=== PATIENT | female | born 1965 | race Hispanic/Latino ===

== ENCOUNTER → 2017-11-20 | Outpatient (CLI) | payer BC | END | disposition home or self-care (01) | LOC: RAH 07:56 | PROVIDERS: ATTEND Internal Medicine | DX: K21.0 Gastro-esophageal reflux disease with esophagitis (principal); R10.13 Epigastric pain | CPT/HCPCS: 74240; 76700 ==

== ENCOUNTER 2021-06-07 06:22 | Observation (INO) | payer BC, OTHER ==
[2021-06-05 12:25] LABS: BASOPHILS % (AUTO) 0.7 % (0.0-5.0); EOSINOPHILS % (AUTO) 0.9 % (0.0-8.0); HEMATOCRIT 38.3 % (36-48); LYMPHOCYTES % (AUTO) 44.1 % (21.0-51.0); MEAN CORPUSCULAR HEMOGLOBIN 32.9 pg (27.0-33.0); MEAN CORPUSCULAR HGB CONC 34.5 g/dL (32.0-36.0); MEAN CORPUSCULAR VOLUME 95.5 fL (79-99); MONOCYTES % (AUTO) 8.6 % (3.0-13.0); NEUTROPHILS % (AUTO) 45.2 % (40.0-77.0); PLATELET COUNT (AUTO) 184 K/uL (130-400); RED BLOOD CELL COUNT(AUTO) 4.01 MIL/uL (4.00-5.50); RED CELL DISTRIBUTION WIDTH 11.6 % (11.0-15.5); WHITE BLOOD COUNT (AUTO) 4.4 K/uL (4.8-10.8)
[2021-06-05 12:34] LABS: CREATININE 0.5 mg/dL (0.5-1.5); POTASSIUM 4.2 mmol/L (3.5-5.1)
[2021-06-05 12:36] LABS: INR 1.05 (0.85-1.15); PROTHROMBIN TIME 11.4 SEC (9.6-11.6)
[2021-06-05 12:37] LABS: PARTIAL THROMBOPLASTIN TIME 26.6 SEC (26.3-35.5)
[2021-06-05 15:36] VITALS: BP 113/71
[~2021-06-07] VITALS: Ht 160 cm; Wt 60.1 kg
[2021-06-07] VITALS (25 sets, daily range): BP systolic 95–134; BP diastolic 54–90
[2021-06-07] MEDS ORDERED: LIDOCAINE 1%-EPI 1:100,000 20 ML VIAL IJ ONE (06:52)
[2021-06-07] MEDS ORDERED: CEFAZOLIN SODIUM 1 GM VIAL ONE (06:53)
[2021-06-07] MEDS ORDERED: LACTATED RINGERS 1000ML 1,000 ML IV ONE (06:54)
[2021-06-07] MEDS ORDERED: FAMOTIDINE 20MG VIAL IV ONE (07:00)
[2021-06-07] MEDS ORDERED: SUCCINYLCHOLINE CHLORIDE 20 MG/ML 10 ML VIAL ONE (07:06)
[2021-06-07] MEDS ORDERED: LIDOCAINE PF 100MG/5ML (2%) SYRINGE 5ML ONE (07:06)
[2021-06-07] MEDS ORDERED: GLYCOPYRROLATE 1 MG/5 ML SYRINGE ONE (07:06)
[2021-06-07] MEDS ORDERED: MIDAZOLAM HCL 1 MG/ML 2ML VIAL ONE (07:06)
[2021-06-07] MEDS ORDERED: PROPOFOL 10 MG/ML 20ML VIAL IV ONE (07:07)
[2021-06-07] MEDS ORDERED: FENTANYL CITRATE PF 50 MCG/1 ML 5ML AMP IV ONE (07:07)
[2021-06-07] MEDS ORDERED: ONDANSETRON 4MG INJ ONE (07:11)
[2021-06-07] MEDS ORDERED: LIDOCAINE 1%-EPI 1:100,000 20 ML VIAL IJ PRN (08:00)
[2021-06-07] MEDS ORDERED: EPHEDRINE SULFATE 50 MG/ML AMPULE ONE (08:25)
[2021-06-07] MEDS ORDERED: MEPERIDINE-PF 25 MG/ML SYG ONE (11:02)
[2021-06-07] MEDS ORDERED: BACITRACIN 28.4 GM OINT TP ONE (11:06)
[2021-06-07] MEDS ORDERED: FENTANYL CITRATE PF 50 MCG/1 ML 2ML VIAL ONE (11:42)
[2021-06-07] MEDS ORDERED: OMEG-148 PO (13:45)
[2021-06-07] MEDS ORDERED: MV-M1TAB57 PO (13:45)
[2021-06-07] MEDS ORDERED: HYDR-4064 PO (13:45)
[2021-06-07] MEDS ORDERED: OMEP-420 PO (13:45)
[2021-06-07] MEDS ORDERED: BACITRACIN 28.4 GM OINT TP SCH (16:00)
[2021-06-07] MEDS ORDERED: ONDANSETRON 4MG INJ IVP PRN (16:00)
[2021-06-07] MEDS ORDERED: OXYCODONE HCL 5 MG TAB PO PRN (16:00)
[2021-06-07] MEDS: ACETAMINOPHEN 500 MG TABLET PO SCH ×2 (16:10→21:18)
[2021-06-07] MEDS: CLINDAMYCIN 150 MG CAP PO SCH ×2 (16:35→23:57)
[2021-06-07] MEDS ORDERED: HYDROCODONE/ACETAMINOPHEN 7.5/325 MG TAB PO PRN (22:00)
[2021-06-08] MEDS: ACETAMINOPHEN 500 MG TABLET PO SCH ×2 (03:09→10:21)
[2021-06-08 03:58] VITALS: BP 101/63
[2021-06-08 07:14] VITALS: BP 110/52
[2021-06-08] MEDS ORDERED: FISH OIL 1000 MG/CAP PO SCH (09:00)
[2021-06-08] MEDS ORDERED: PANTOPRAZOLE 40 MG TAB DR PO SCH (09:00)
[2021-06-08] MEDS ORDERED: MULTIVITAMIN WITH MINERALS TABLET PO SCH (09:00)
[2021-06-08] MEDS: CLINDAMYCIN 150 MG CAP PO SCH (10:19)
[2021-06-08 11:22] VITALS: BP 106/76
== END 2021-06-08 12:26 | disposition home or self-care (01) ==
LOC: DAH 06:22 → 4BH 06:23 → DAH 06:23
PROVIDERS: ADMIT Otolaryngology; ATTEND Otolaryngology
DX: D11.0 Benign neoplasm of parotid gland (principal); Z20.822 Contact with and (suspected) exposure to COVID-19; R22.1 Localized swelling, mass and lump, neck; D49.0 Neoplasm of unspecified behavior of digestive system; Z79.899 Other long term (current) drug therapy
CPT/HCPCS: 15733; 36415; 42415; 71045; 80048; 85025; 85610; 85730; 87635; 93005; A4215; A4216; A4221; A4222; A4223 ×2; A4344; A4600; A4649 ×2; A4663; A4930; A6206; A6260; A6446; C9803; G0378 ×24; J0330; J0690; J2001; J2175; J2250; J2405; J2704; J3010 ×2; J3490 ×4; J7030; J7120